=== PATIENT | male | born 1995 | race Caucasian/White ===

== ENCOUNTER 2019-02-27 11:38 | Emergency (ER) | payer MEDICAID ==
[~2019-02-27] VITALS: Ht 157.5 cm; Wt 59.0 kg
[2019-02-27 11:40] VITALS: BP 119/71; PULSE 91; RESP 18; Ht 157.5 cm; Wt 59.0 kg
[2019-02-27] MEDS ORDERED: IBUP-1542 PO (13:59)
--- NOTE | 2019-02-27 14:00 | ERD ---
ER Documentation Chief Complaint Chief Complaint bolth testicular pain more painful on the right x 2 weeks HPI 23-year-old male presents with pain mostly in the right testicle the last 2 we eks. He denies any history of trauma. May have mild dysuria. Denies any concern for STDs. He denies any penile discharge, abdominal pain, vomiting, fevers, additional symptoms. ROS All systems reviewed and are negative except as per history of present illness. Medications Home Meds Active Scripts Doxycycline Hyclate* (Doxycycline Hyclate*) 100 Mg Tablet.dr, 100 MG PO BID for 10 Days, TAB Prov:SUZANNA DONOVAN MD 02/27/19 Ibuprofen* (Motrin*) 600 Mg Tab, 600 MG PO Q6, #20 TAB Prov:SUZANNA DONOVAN MD 02/27/19 Physical Exam Vitals Vital Signs Date Temp Pulse Resp B/P (MAP) Pulse Ox O2 O2 Flow FiO2 Time Delivery Rate 02/27/19 97.7 91 18 119/71 99 11:40 (87) Physical Exam Const: No acute distress Head: Atraumatic Eyes: Normal Conjunctiva ENT: Normal External Ears, Nose and Mouth. Neck: Full range of motion. No meningismus. Resp: Clear to auscultation bilaterally Cardio: Regular rate and rhythm, no murmurs Abd: Soft, non tender, non distended. Normal bowel sounds. General exam shows minimal tenderness to the right superior testicle without dominant masses. Positive cremasteric reflex. No external lesions and no discharge. No hernias appreciated. Skin: No petechiae or rashes Back: No midline or flank tenderness Ext: No cyanosis, or edema Neur: Awake and alert Psych: Normal Mood and Affect Results 24 hrs Laboratory Tests Test 02/27/19 12:21 Urine Color COLORLESS Urine Clarity CLEAR Urine pH 8.0 Urine Specific [place] 1.003 Urine Ketones NEGATIVE mg/dL Urine Nitrite NEGATIVE mg/dL Urine Bilirubin NEGATIVE mg/dL Urine Urobilinogen NEGATIVE mg/dL Urine Leukocyte Esterase NEGATIVE Jazz/ul Urine Hemoglobin NEGATIVE mg/dL Urine Glucose NEGATIVE mg/dL Urine Total Protein NEGATIVE mg/dl Procedures/MDM Scrotal ultrasound shows no sign of torsion. Small right epididymal head cyst is possible hypervascular flow consistent with epididymitis in the left , although this is not in the area of patient's symptoms.. Urine is negative. Urine sent for gonorrhea chlamydia. Patient presents with right testicle pain without signs of torsion, abscess, Dhara's gangrene, signs of abdominal pain, additional concerning signs or symptoms. Will treat with ibuprofen and doxycycline given findings on ultrasound, and await STD testing results . The patient was stable with no new complaints during the ER course. Clinically, there is no current evidence to suggest meningitis, sepsis, acute abdomen, pne umonia, stroke, acute coronary syndrome, pulmonary embolism, aortic dissection or any other emergent condition appearing to require further evaluation or hospitalization. Patient counseled regarding my diagnostic impression and care plan. Prior to discharge all questions answered. Pt agrees with treatment plan and understands strict return precautions. Pt is instructed to follow up with primary care provider within 24-48 hours. Precautionary instructions provided including instructions to return to the ER if not improving or for any worsening or changing symptoms or concerns. Disclaimer: Inadvertent spelling and grammatical errors are likely due to EHR/dictation software use and do not reflect on the overall quality of patient care. Also, please note that the electronic time recorded on this note does not necessarily reflect the actual time of the patient encounter. Departure Diagnosis: Primary Impression: Pain in testicle Condition: Stable Patient Instructions: Testicular Pain, Unclear Cause Referrals: NO PRIMARY,CARE PHYSICIAN (PCP) Additional Instructions: hay solo poquito cyste ( benigna) . orina normal. Examines normal hoy. Cheque otro vez con martinez doctor primario en el proximo lomeli or regresa para mas o nueva simptomas. Va al martinez doctor/ specialista para mas evaluacon en el proximo semana. posiblemente necesita autorizado de martinez doctor primario para specialista. Regresa para fiebre, o mas o nueva simptomas. SUZANNA DONOVAN MD February 27, 2019 14:00
[2019-02-27] MEDS ORDERED: DOXY100T20 PO (14:48)
== END 2019-02-27 14:55 | disposition home or self-care (01) ==
LOC: FTE 11:38
DX: N50.811 Right testicular pain (principal)
CPT/HCPCS: 76870; 81003; 87591; Z7502